=== PATIENT | female | born 1950 | race Caucasian/White ===

== ENCOUNTER 2016-12-18 16:00 | Emergency (ER) | payer MEDICARE, OTHER ==
[~2016-12-18 16:00] MED LIST: AMO500 PO; ASPIR-LOW81 M1 PO; CALCIUM PO; CEPHALEXIN500 MG PO; COZAAR100 MG PO; FOS10 PO; GLU10 PO; GLU500 PO; JANUVIA100 M1 PO; LANTI; NEU300 PO; VIT D3 PO; ZOC20 PO; [UNRECOGNIZED DRUG - OTHER]
[2016-12-18 17:07] LABS: BASOPHIL % 0.8 % (0-2); PLATELET COUNT 235 x10^3mcL (130-400); RED CELL DISTRIBUTION WIDTH 13.2 % (11.5-14.5)
[2016-12-18 17:12] LABS: CALCIUM 8.9 mg/dL (8.5-10.1); CARBON DIOXIDE 28.3 mmol/L (21-32); CHLORIDE SERUM 102 mmol/L (98-107); CREATININE SERUM 0.9 mg/dL (0.6-1.0); GFR1 > 60 mL/min; GLUCOSE SERUM 130 mg/dL (74-106); POTASSIUM SERUM 5.1 mmol/L (3.5-5.1); SODIUM SERUM 139 mmol/L (136-145)
[2016-12-18 17:16] LABS: ALBUMIN 3.5 g/dL (3.4-5.0); ALKALINE PHOSPHATASE 46 U/L (46-116); ALT/SGPT 32 U/L (14-59); AST/SGOT 25 U/L (15-37); BILIRUBIN TOTAL 0.17 mg/dL (0.20-1.00); TOTAL PROTEIN, SERUM 6.7 g/dL (6.4-8.2)
[2016-12-18 18:03] VITALS: BP 159/88
== END 2016-12-18 18:03 | disposition home or self-care (01) ==
LOC: ED 16:00
PROVIDERS: Emergency Medicine
DX: D64.9 Anemia, unspecified (principal); I10 Essential (primary) hypertension; E11.9 Type 2 diabetes mellitus without complications; Z90.49 Acquired absence of other specified parts of digestive tract; Z90.89 Acquired absence of other organs
CPT/HCPCS: 36415

== ENCOUNTER 2017-02-01 11:03 | Emergency (ER) | payer MEDICARE, OTHER ==
[2017-02-01 13:34] LABS: BASOPHIL % 0.5 % (0-2); PLATELET COUNT 275 x10^3mcL (130-400); RED CELL DISTRIBUTION WIDTH 13.2 % (11.5-14.5)
[2017-02-01 13:43] LABS: CALCIUM 9.4 mg/dL (8.5-10.1); CARBON DIOXIDE 28.1 mmol/L (21-32); CREATININE SERUM 1.1 mg/dL (0.6-1.0); POTASSIUM SERUM 4.4 mmol/L (3.5-5.1)
[2017-02-01 13:48] LABS: ALBUMIN 3.9 g/dL (3.4-5.0); BILIRUBIN TOTAL 0.4 mg/dL (0.20-1.00); MAGNESIUM 1.7 mg/dL (1.8-2.4); TOTAL PROTEIN, SERUM 7.8 g/dL (6.4-8.2)
[2017-02-01 13:49] LABS: microscopic required? NO
[2017-02-01 14:00] LABS: UA SPECIFIC GRAVITY <=1.005 (1.005-1.035); urine erythrocyte NEGATIVE (NEGATIVE)
[2017-02-01 16:49] VITALS: BP 160/87
== END 2017-02-01 16:49 | disposition home or self-care (01) ==
LOC: ED 11:03
PROVIDERS: Emergency Medicine
DX: R42 Dizziness and giddiness (principal); R53.1 Weakness; R11.0 Nausea; R63.0 Anorexia; E11.9 Type 2 diabetes mellitus without complications; I10 Essential (primary) hypertension; N28.9 Disorder of kidney and ureter, unspecified; E78.5 Hyperlipidemia, unspecified; M81.0 Age-related osteoporosis without current pathological fracture; Z79.4 Long term (current) use of insulin; Z79.899 Other long term (current) drug therapy; Z88.8 Allergy status to other drugs, medicaments and biological substances
CPT/HCPCS: 82962; J7030

== ENCOUNTER 2017-04-14 21:11 | Emergency (ER) | payer MEDICARE, OTHER ==
[2017-04-15 00:49] VITALS: BP 138/112
== END 2017-04-15 00:49 | disposition home or self-care (01) ==
LOC: ED 21:11
DX: H20.00 Unspecified acute and subacute iridocyclitis (principal); H10.9 Unspecified conjunctivitis; I10 Essential (primary) hypertension; E11.9 Type 2 diabetes mellitus without complications; Z79.84 Long term (current) use of oral hypoglycemic drugs; Z88.8 Allergy status to other drugs, medicaments and biological substances

== ENCOUNTER 2018-08-12 09:56 | Emergency (ER) | payer MEDICARE, OTHER ==
[~2018-08-12] VITALS: Ht 162.6 cm; Wt 71.7 kg
[2018-08-12 11:12] LABS: BASOPHIL % 0.7 % (0-2); PLATELET COUNT 253 x10^3mcL (130-400); RED CELL DISTRIBUTION WIDTH 12.9 % (11.5-14.5)
[2018-08-12 11:16] LABS: CALCIUM 9.2 mg/dL (8.5-10.1); CARBON DIOXIDE 28.3 mmol/L (21-32); CREATININE SERUM 1.1 mg/dL (0.6-1.0); POTASSIUM SERUM 4.8 mmol/L (3.5-5.1)
[2018-08-12 11:20] LABS: ALBUMIN 3.5 g/dL (3.4-5.0); BILIRUBIN TOTAL 0.45 mg/dL (0.20-1.00); TOTAL PROTEIN, SERUM 7.8 g/dL (6.4-8.2)
[2018-08-12 12:14] LABS: UA SPECIFIC GRAVITY 1.015 (1.005-1.035); microscopic required? YES; urine erythrocyte NEGATIVE (NEGATIVE)
[2018-08-12 12:23] LABS: AMPHETAMINE QUAL UR NONE DETECTED (See below)
[2018-08-12 17:15] VITALS: BP 143/72
== END 2018-08-12 17:16 | disposition home or self-care (01) ==
LOC: ED 09:56
PROVIDERS: Emergency Medicine
DX: E11.65 Type 2 diabetes mellitus with hyperglycemia (principal); R11.2 Nausea with vomiting, unspecified; R19.7 Diarrhea, unspecified; E11.22 Type 2 diabetes mellitus with diabetic chronic kidney disease; I12.9 Hypertensive chronic kidney disease with stage 1 through stage 4 chronic kidney disease, or unspecified chronic kidney disease; N18.3 Chronic kidney disease, stage 3 (moderate); E78.00 Pure hypercholesterolemia, unspecified; M81.0 Age-related osteoporosis without current pathological fracture; Z90.49 Acquired absence of other specified parts of digestive tract; Z98.890 Other specified postprocedural states; Z88.8 Allergy status to other drugs, medicaments and biological substances
CPT/HCPCS: 82962; 83880; J1815; J2405; J2765; J3490; J7030

== ENCOUNTER 2019-02-28 14:19 | Emergency (ER) | payer MEDICARE, OTHER ==
[~2019-02-28] VITALS: Ht 160 cm; Wt 59.0 kg
[2019-02-28 14:24] VITALS: Ht 160 cm; Wt 59.0 kg
[2019-02-28 15:29] LABS: BASOPHIL % 0.9 % (0-2); PLATELET COUNT 264 x10^3mcL (130-400); RED CELL DISTRIBUTION WIDTH 13.6 % (11.5-14.5)
[2019-02-28 15:34] LABS: CALCIUM 9.5 mg/dL (8.5-10.1); CARBON DIOXIDE 33.7 mmol/L (21-32); CREATININE SERUM 1.1 mg/dL (0.6-1.0); POTASSIUM SERUM 4.6 mmol/L (3.5-5.1)
[2019-02-28 15:41] LABS: ALBUMIN 3.6 g/dL (3.4-5.0); BILIRUBIN TOTAL 0.33 mg/dL (0.20-1.00); TOTAL PROTEIN, SERUM 7.2 g/dL (6.4-8.2)
[2019-02-28 17:00] LABS: microscopic required? NO
[2019-02-28 17:45] LABS: UA SPECIFIC GRAVITY <=1.005 (1.005-1.035); urine erythrocyte NEGATIVE (NEGATIVE)
[2019-02-28 20:15] VITALS: BP 138/60
== END 2019-02-28 20:15 | disposition home or self-care (01) ==
LOC: ED 14:19
PROVIDERS: Emergency Medicine
DX: R42 Dizziness and giddiness (principal); F41.9 Anxiety disorder, unspecified; R11.2 Nausea with vomiting, unspecified; I10 Essential (primary) hypertension; E11.40 Type 2 diabetes mellitus with diabetic neuropathy, unspecified; M81.0 Age-related osteoporosis without current pathological fracture; Z90.49 Acquired absence of other specified parts of digestive tract; Z98.890 Other specified postprocedural states; Z88.8 Allergy status to other drugs, medicaments and biological substances
CPT/HCPCS: J2405; J7030; Q0092

== ENCOUNTER 2019-05-28 23:20 | Emergency (ER) | payer MEDICARE, OTHER | END 2019-05-29 01:29 | disposition left against medical advice (07) | LOC: ED 23:20 | DX: Z53.21 Procedure and treatment not carried out due to patient leaving prior to being seen by health care provider (principal) ==

== ENCOUNTER 2019-05-29 03:53 | Emergency (ER) | payer MEDICARE, OTHER ==
[~2019-05-29] VITALS: Ht 160 cm; Wt 70.3 kg
[2019-05-29 03:58] VITALS: Ht 160 cm; Wt 70.3 kg
[2019-05-29 04:47] LABS: BASOPHIL % 0.4 % (0-2); PLATELET COUNT 265 x10^3mcL (130-400); RED CELL DISTRIBUTION WIDTH 13.2 % (11.5-14.5)
[2019-05-29 04:55] LABS: CALCIUM 8.9 mg/dL (8.5-10.1); CARBON DIOXIDE 24.6 mmol/L (21-32); CREATININE SERUM 1.1 mg/dL (0.6-1.0); POTASSIUM SERUM 4.1 mmol/L (3.5-5.1)
[2019-05-29 04:59] LABS: ALBUMIN 3.7 g/dL (3.4-5.0); BILIRUBIN TOTAL 0.6 mg/dL (0.20-1.00); TOTAL PROTEIN, SERUM 7.6 g/dL (6.4-8.2)
[2019-05-29 06:19] VITALS: BP 158/68
== END 2019-05-29 06:19 | disposition home or self-care (01) ==
LOC: ED 03:53
PROVIDERS: Emergency Medicine
DX: K52.9 Noninfective gastroenteritis and colitis, unspecified (principal); E11.65 Type 2 diabetes mellitus with hyperglycemia; I10 Essential (primary) hypertension; E11.40 Type 2 diabetes mellitus with diabetic neuropathy, unspecified; Z90.49 Acquired absence of other specified parts of digestive tract; Z98.890 Other specified postprocedural states; Z88.0 Allergy status to penicillin
CPT/HCPCS: J2765; J7030

== ENCOUNTER 2019-05-30 23:44 | Inpatient (IN) | payer MEDICARE, OTHER ==
[~2019-05-30] VITALS: Ht 162.6 cm; Wt 71.3 kg
[2019-05-30 23:53] VITALS: Ht 162.6 cm; Wt 71.3 kg
--- NOTE | 2019-05-31 00:27 | NUR ---
PT BIB DAUGHTER TO ED WITH PT C/O OF ABD PAIN, DIZZINESS, VOMITING. PER DAUGHTER, PT WAS SEEN YESTERDAY AND HAS THE SAME SYMPTOMS BEFORE. PER DAUGHTER, PT ALSO APPEARS TO HAVE "PALE TONGUE" AND BECAME CONCERNED WHEN EMESIS WAS BROWN IN APPEARANCE AND WAS CONCERNED IT WAS BLOOD. PT A&OX4,NO ACUTE DISTRESS NOTED, RESP EVEN ANDU NLABORED, LAYING IN POSITION OF COMFORT. BROWN COLORED EMESIS NOTED ON PT SHIRT AND PT CONTINUES TO SPIT INTO EMESIS BAG. PT DAUGHTER AT BEDSIDE.
[2019-05-31 01:09] LABS: CALCIUM 9.2 mg/dL (8.5-10.1); CARBON DIOXIDE 29.5 mmol/L (21-32); CREATININE SERUM 1.3 mg/dL (0.6-1.0)
[2019-05-31 01:14] LABS: ALBUMIN 3.7 g/dL (3.4-5.0); BASOPHIL % 0.8 % (0-2); BILIRUBIN TOTAL 0.46 mg/dL (0.20-1.00); PLATELET COUNT 295 x10^3mcL (130-400); RED CELL DISTRIBUTION WIDTH 12.8 % (11.5-14.5); TOTAL PROTEIN, SERUM 7.7 g/dL (6.4-8.2)
--- NOTE | 2019-05-31 02:07 | NUR ---
PT RESTING IN BED. PT VITALS ARE STABLE. PT COMPLAINING OF MILD NUASEA BUT DENIES THE NEED FOR MORE MEDICATIONS. PT DENIES ANY PAIN. PT IS A/O X4. RESP ARE E/U. NO ACUTE DISTRESS NOTED.
[2019-05-31] MEDS ORDERED: MASON NATURAL1000 IU PO (02:10)
[2019-05-31] MEDS ORDERED: LACTULOSE10 GM/152 PO (02:11)
[2019-05-31] MEDS ORDERED: MIRALAX17 GM/Dose PO (02:11)
[2019-05-31 03:10] LABS: UA SPECIFIC GRAVITY 1.025 (1.005-1.035); microscopic required? YES; urine erythrocyte TRACE (NEGATIVE)
--- NOTE | 2019-05-31 04:55 | NUR ---
REPORT GIVEN TO JENNIFER ANDREWS TO ASSUME CARE OF PT.
--- NOTE | 2019-05-31 06:00 | NUR ---
RECEIVED PT FROM ED VIA [facility], ACCOMPANIED BY RN. PT AA&O X4. NO SOB ON ROOM AIR. BREATHING EVEN AND UNLABORED. NO C/O DIZZINESS/N/V AT THIS TIME. PT STATES RECEIVED MEDICATION IN ED. AMBULATES WITH ASSIST. USES WALKER AT HOME. SAFETY MEASURES IN PLACE. DEMONSTRATED HOW TO CALL FOR ASSISTANCE. CALL LIGHT WITHIN REACH. WILL ENDORSE CONTINUITY OF CARE TO ONCOMING RN.
[2019-05-31 06:26] VITALS: BP 115/66
--- NOTE | 2019-05-31 08:00 | NUR ---
RECEIVED PATIENT ALERT AND ORIENTED AND RESTING QUIETLY AT THIS TIME SHE IS NPO DUE TO NAUSEA AND VOMITING AND POOR INTAKE OF DIET. NTOE DTHE AIC AT 9.1 AND PATIEN TAHS SOME BACTERIA IN THE URINE. SHE HAS BEEN AMBULATORY BUT HAS BEEN SHAKEY AND RECEIVED ATIVERT IN THE ER PRIOR TO ARRIVING TO THE FLOOR. SHE DID NOT REQUIRE3 FURTHER MEDICATION AND REFUSED PAIN MEDICATION PER THE DATA COMMUNICATIONS ANALYST. VITALS AT THIS TIME ARE AT 98.2, 97, 18, 161/78, 98%. PATIENT LAST BM WAS ON THE . SHE HAS HYPOACTIVE BOWEL SOUNDS AT THIS TIME. LUNGS ARE DIMINISHE DBUT CLEAR AND PULSES PALPABLE TO ALL EXTREMITIES. SHE DENIE BURING ON URINATION AND FAMILY STATES SHE HAS A HISTORY OF [id number]. WILL CONTINUE TO MONITOR INDICATED.
[2019-05-31 09:01] VITALS: BP 161/78
--- NOTE | 2019-05-31 10:16 | NUR ---
DR MANZO IN TO SEE AND DISCUSSED POSSIBLE UPPER GI. PATIENT IS SHAKEY AND WITH HICUPS. SHE DENIES PAIN BUT HAS BEEN WITH NAUSEA AND ON AND OFF VOMITING FOR SEVERAL WEEKS PER THE FAMILY. HER AIC IS HIGH AND SHE HAS HAD BLOOD SUGARS OF 300 PLUS WHEN ADMITTED TO THE ER. SHE HAS HAD A MRI ON THE OUTSIDE WITH A NEUROLOGIST IN [place] BUT THE RESULTS WITHOUT CONTRAST WERE INCONCLUSIVE AND ANOTHER IS PENDING INSURANCE APPROVAL. ADVISED DR MANZO AND HE HAS SO FAR NTO ORDERED UPPER GI ASS THE LASBS ARE GOOD AT THIS TIME WITH AN H AND H OS 14.1 AND HAS BEEN WITH NO ACTIVE BLEEDING. THERE IS SOME BACTERIA AND KETONES IN THE URINE NOTED. PATIENT IS RESTING AND GAVE HER MEDICATIONS FOR BP AND GERD INDICATED. SHE REFUSED ZOFRAN OR PAIN MEDICATION AT THIS TIME. LUNGS ARE DIMINISHED AND SOME TRACE EDEMA NOTED TO THE LOWER EXTREMITIES. NOTE DTHE AIC AT 9.1 AND HAS BEEN WITH HX OF HTN, DM, BILATERA ANKLE FRACTURES, C SECTIONS. DEMETRIO THAS A WALKER AT HOME AND HAS BEEN ON NORMAL SALINE AT 75 CC PER HOUR. PATIENT HAS AN ALLERGY TO IODINE NOTED. WILL CONTINUE TO MONITOR INDICATED.
[2019-05-31 13:24] VITALS: BP 182/84
--- NOTE | 2019-05-31 14:34 | NUR ---
PATIENT HAS ELEVATED BP AND HAD JUST RETURNED FROM [facility]. CHECKED AGAIN BUT REMAINS ELEVATED. HAD CALLED THE RESIDENT FOR ADJUSTMENT TO THE PRESENT ORDERS OF INSULIN NPH AND LANTUS AND THE REGLAN ORDER TO CLARIFY. AWAITING HTE RESULTS OF THE KUB ORDERED. DENIES PAIN, NAUSEA OR DIZZINESS AT THIS TIME.
[2019-05-31 16:31] VITALS: BP 142/74
--- NOTE | 2019-05-31 17:49 | NUR ---
BLOOD SUGAR AT THIS TIME AT 153 ADN THE BP AT 145/81. MUCH IMPROVED SINCE PRIOR THE NPH AND THE HYDRALIZINE. PATIENT IS ON CLEAR LIQUID DIET AND HAS BEEN WITH MINIMAL NAUSEA AT THIS TIME. ADVISED THAT AFTER MIDNIGHT NO FOOD POSSIBLE EGD PLANNED. DR MANZO WAS NOT SURE IF SHE NEEDED A EXAM OR NOT. ADVISED THE PATEINT OF PLAN OF CARE. =
--- NOTE | 2019-05-31 19:20 | NUR ---
OFFERED NUMBER FOR THE PATIENTS NEUROGLIST TO THE RESIDENT. PLACED IN THE CHART FOR REFERENCE INDICATED. PATIENT HAS HAS A MRI AND NEEDS A MRO WITH SOME KIND OF CONTRAST THAT SHE IS NOT ALLERGIC TOO FOR BETTER VISUALIZATION. CONTRAST FOR BETTER VISUALIZATION. PATIENT IS RESTING QUIELTY AT THIS TIME WILL ENDORSE TO THE NEXT SHIFT INDICATED.
--- NOTE | 2019-05-31 19:30 | NUR ---
RECEIVED REPORT FROM DAY SHIFT RN. PT RESTING IN BED COMFORTABLY. AA&O X4. BREATHING EVEN AND UNLABORED ON ROOM AIR. NO C/O N/V/ABD PAIN AT THIS TIME. NO DISTRESS NOTED. IV TO RAC, 1/2 NS INFUSING. SAFETY MEASURES IN PLACE. BED IN LOWEST POSITION. SIDE RAIL SUP X2. INSTRUCTED PT TO USE THE CALL LIGHT FOR ASSISTANCE. CALL LIGHT WITHIN REACH. DAUGHTER AT BEDSIDE.
--- NOTE | 2019-05-31 21:12 | NUR ---
PT C/O NAUSEA. ZOFRAN GIVEN.
[2019-05-31 22:09] VITALS: BP 150/57
--- NOTE | 2019-06-01 02:29 | NUR ---
PT RESTING IN BED WITH EYES CLOSED. NO FACIAL GRIMACING. NO DISTRESS NOTED. CALL LIGHT WITHIN REACH. NIECE AT BEDSIDE.
[2019-06-01 05:51] VITALS: BP 178/77
--- NOTE | 2019-06-01 06:50 | NUR ---
PT RESTED IN LONG INTERVALS DURING SHIFT. NO SOB NOTED. NO C/O PAIN. NO C/O N/V/DIZZINESS AT THIS TIME. SAFETY MEASURES MAINTAINED. ALL NEEDS ATTENDED TO. CALL LIGHT WITHIN REACH. NIECE AT BEDSIDE. WILL ENDORSE CONTINUITY OF CARE TO DAY SHIFT RN.
[2019-06-01 06:56] LABS: BASOPHIL % 0.7 % (0-2); PLATELET COUNT 227 x10^3mcL (130-400); RED CELL DISTRIBUTION WIDTH 13.2 % (11.5-14.5)
[2019-06-01 07:28] LABS: CALCIUM 8.6 mg/dL (8.5-10.1); CARBON DIOXIDE 26.1 mmol/L (21-32); MAGNESIUM 1.6 mg/dL (1.8-2.4); PHOSPHOROUS 3.3 mg/dL (2.5-4.9); POTASSIUM SERUM 3.3 mmol/L (3.5-5.1)
--- NOTE | 2019-06-01 07:31 | NUR ---
RECEIVED HAND OFF REPORT FROM NIGHT NURSE. PATIENT IS AWAKE AND ALERT X4, LAYING IN BED ON ROOM AIR WITH COMPLAINT OF MILD NAUSEA. FAMILY MEMBER IN ROOM FOR LUX[place]BOURGISH TRANSLATION. INFORMED PATIENT AND FAMILY OF NEED FOR NPO STATUS UNTIL FURTHER CLARIFICATION BY DR MANZO FOR POSIBLE EGD. VERBAL REPORT STATED THAT DR MANZO SAID HE MIGHT WANT TO PERFORM EGD AND TO KEEP PATIENT NPO, WILL FOLLOW UP WITH RESIDENT. WALKER IN ROOM, PATIENT AMBULATORY AT BASELINE ORIENTED TO CALL LIGHT AND PLACED WITHIN REACH
[2019-06-01 08:46] VITALS: BP 174/77
--- NOTE | 2019-06-01 08:46 | NUR ---
PATIENT COMPLAINING OF NAUSEA AT THIS TIME. ADMINSTERED ZOFRAN PER AUG. WILL CONITUE TO MONITOR
--- NOTE | 2019-06-01 09:15 | NUR ---
P.T. NOTES UNABLE TO SEE PATIENT AT THIS TIME DUE TO FEELING NAUSEAS, PER FAMILY PATIENT WOULD LIKE TO GET SOME REST.
[2019-06-01 12:45] VITALS: BP 176/78
--- NOTE | 2019-06-01 12:57 | NUR ---
PATIENT COMPLAINING OF NAUSEA. MEDICATED PER MAR. UPDATED FAMILY MEMBER WILL CONTINUE TO MONITOR
--- NOTE | 2019-06-01 14:00 | NUR ---
DR MANZO ROUNDED ON PATIENT AND ADVISED PATIENT ON EGD. PATIENT CONSENTED TO PRODECURE. INFOMRED CONSENT OBTAINED, CHECKLIST FINISHED. REPORTED CALLED TO GI LAB. PATIENT TAKEN DOWN FOR EGD AT 1415.
--- NOTE | 2019-06-01 14:40 | NUR ---
PHYSICAL THERAPY DAILY NOTES CO-SIGN All documentation done by the Casing Wringer Operator for 06/01/19 has been reviewed. I agree with the documentation. Reviewed/Co-Signed by: Ritu Guzman PT Documentation Done by:KATHLEEN HERNANDEZ PTA
--- NOTE | 2019-06-01 15:56 | NUR ---
OUTPATIENT NURSE SHAHID REPORTED STABLE VITAL SIGNS POST EGD. DIAGNOSIS OF GASTRITIS AND GERD. RECEIVED FROM OUTPATIENT, TRANSPORTED VIA [facility]. AWAKE AND ALERT, ORIENTED TO NAME, PLACE, TIME AND SITUATION. BREATHING EVEN AND UNLABORED ON ROOM AIR. VITAL SIGNS BP 122/67, WA 84, RR 16/MIN, O2 SAT 94% ON RA, T 98.0F. FEMALE FAMILY MEMBER IN ROOM.
[2019-06-01 15:57] VITALS: BP 122/67
[2019-06-01 16:17] LABS: FREE T4 1.59 ng/dL (0.76-1.46)
[2019-06-01 16:31] VITALS: BP 122/64
--- NOTE | 2019-06-01 17:30 | NUR ---
FULL LIQUID TRAY AT BEDSIDE. ENCOURAGED PATIENT TO EAT MEAL. ADMINISTERED MEDICATIONS PER MAR. NO COMPLAINTS OF PAIN AT THIS TIME. DAUGHTER AT BEDSIDE
--- NOTE | 2019-06-01 19:10 | NUR ---
RECEIVED PT IN BED RESTING WITH FAMILY AT BEDSIDE. NO SOB NOTED.LUNG SOUND CTA. C/O SLIGHT NAUSEA. WILL MEDICATE ORDERED. IV SITE PATENT AND INTACT. BOWEL SOUND ACTIVE. PT ABLE TO FOLLOW COMMANDS. DENIES PAIN AT THIS TIME. BED IN LOWEST POSITION,CALL LIGHT WITHIN REACH. WILL CONTINUE TO MONITOR.
--- NOTE | 2019-06-01 19:32 | NUR ---
GAVE REPORT TO NIGHT NURSE. PATIENT TOLLERATED MEAL FOR A TIME. EPISODE OF SLIGHT NAUSEA. NO VOMITING. PATIETN AWARE OF EGD FINDINGS. ENDORSED CARE
[2019-06-01 21:04] VITALS: BP 123/65
--- NOTE | 2019-06-01 21:35 | NUR ---
RECEIVED REPORT FROM COLEEN ANDREWS FOR CONTINUITY OF CARE. PT IS AAOX4 AND SITTING IN THE CHAIR AT BEDSIDE. FAMILY AT BEDSIDE. PT C/O NAUSEA. WILL ADMINISTER ZOFRAN PER MAR ALONG WITH SCHEDULED MEDS. ROUTINE MEDS TOLERATED WELL. CALL LIGHT WITHIN REACH. WILL CONTINUE TO MONITOR.
--- NOTE | 2019-06-01 23:55 | NUR ---
PT ASKED FOR BS TO BE CHECKED. RBS WAS 260. NO ACUTE DISTRESS NOTED. PT WAS COLD. PROVIDED PT WITH WARM BLANKET. WILL CONTINUE TO MONITOR.
--- NOTE | 2019-06-02 02:51 | NUR ---
PT SLEEPING. PT BREATHING EVEN AND UNLABORED. NO ACUTE DISTRESS NOTED. IVF INFUSING WELL. IV INTACT. FAMILY AT BEDSIDE. CALL LIGHT WITHIN REACH. BED IN LOWEST POSITION. SIDE RAILS X2 UP. WILL CONTINUE TO MONITOR.
--- NOTE | 2019-06-02 03:45 | NUR ---
PT SLEEPING. PT BREATHING EVEN AND UNLABORED. NO ACUTE DISTRESS NOTED. IVF INFUSING WELL. FAMILY AT BEDSIDE. CALL LIGHT WITHIN REACH. BED IN LOWEST POSITION. SIDE RAILS X2 UP. WILL CONTINUE TO MONITOR.
--- NOTE | 2019-06-02 05:15 | NUR ---
PT SLEPT THROUGHOUT THE NIGHT. NO ACUTE DISTRESS NOTED. PT COMPLIED WITH NURSING CARE THROUGHOUT THE SHIFT. COMFORT AND SAFETY MEASURES MAINTAINED. ALL QUESTIONS AND CONCERNS ADDRESSED. WILL ENDORSE CARE TO DAY SHIFT NURSE. WILL CONTINUE TO MONITOR. FAMILY AT BEDSIDE.
[2019-06-02 05:43] VITALS: BP 153/83
[2019-06-02 06:05] LABS: BASOPHIL % 0.4 % (0-2); PLATELET COUNT 248 x10^3mcL (130-400); RED CELL DISTRIBUTION WIDTH 13.4 % (11.5-14.5)
[2019-06-02 07:00] LABS: CALCIUM 8.7 mg/dL (8.5-10.1); CARBON DIOXIDE 29.5 mmol/L (21-32); CREATININE SERUM 1.4 mg/dL (0.6-1.0); MAGNESIUM 2.3 mg/dL (1.8-2.4); PHOSPHOROUS 4.4 mg/dL (2.5-4.9); POTASSIUM SERUM 3.7 mmol/L (3.5-5.1)
[2019-06-02 08:13] VITALS: BP 121/70
--- NOTE | 2019-06-02 08:19 | NUR ---
RECEIVED REPORT FROM TELE RN NURSE, AOX4, MEDSURG, REGULAR RATE AND RHYTHM, CTA ON BLF, PALPABLE PULSES , NO EDEMA, +BS, LAST BM 05/31, VOID WITH NO DYSURIA, GENERALIZED WEAKNESS, LIMITED ROM FROM PAIN, SKIN DRY AND INTACT, IV INTACT AND PATENT, 0.45NS INFUSING AT RAC AT 20CC/HR. CALL LIGHT WITHIN REACH. BED AT LOWEST POSITION.
--- NOTE | 2019-06-02 08:48 | NUR ---
SEEN SITTING, AOX4, FEEDING SELF , NO SUBJECTIVE COMPLAINTS, PO MEDICATIONS TAKEN, PROTONIX IVP GIVEN. CALL LIGHT WITHIN REACH. BED AT LOWEST POSITION.
--- NOTE | 2019-06-02 10:22 | NUR ---
SEEN PATIENT SITTING WITH PT SANDRA. WALKING EXERCISE NOT DONE DUE TO PATIENT COMPLAINING OF WEAKNESS FROM DIARRHEA. PATIENT ADVISED TO DO EXERCISES WHILE SITTING. BP WAS 90/48 PRIOR TO EXERCISE. POST EXERCISE, BP 109/54. ADVISED TO TAKE IN FLUIDS. DR. MANZO MADE AWARE . CALL LIGHT WITHIN REACH. BED AT LOWEST POSITION.
--- NOTE | 2019-06-02 11:40 | NUR ---
SEEN PATIENT AOX4, NOT IN DISTRESS, NO DYSPNEA WITH COMPLAINTS OF BODY MALAISE. ADVISED TO DO STRETCHING AND MOBILIZE EXTREMITIES. CALL LIGHT WITHIN REACH. BED AT LOWEST POSITION.
[2019-06-02 12:36] VITALS: BP 153/71
--- NOTE | 2019-06-02 14:51 | NUR ---
SEEN AOX4, NOT IN DISTRESS, PATIENT VERBALIZED THAT SHE HAS BEEN DEFECATING WATERY STOOLS. EXPLAINED TO PATIENT THAT SHE WILL BE TAKING SUPREP BOWEL PREP FOR COLONOSCOPY AND THAT HER BOWELS NEEDED TO BE CLEAR PRIOR TO COLONOSCOPY. PATIENT VERBALIZED UNDERSTANDING
--- NOTE | 2019-06-02 16:20 | NUR ---
SEEN AOX4, NO SUBJECTIVE COMPLAINTS. ACCUCHECK DONE CBG 310. REG 12 U SQ GIVEN. CALL LIGHT WITHIN REACH. BED AT LOWEST POSITION.
[2019-06-02 16:21] VITALS: BP 111/68
--- NOTE | 2019-06-02 17:03 | NUR ---
PHYSICAL THERAPY DAILY NOTES CO-SIGN All documentation done by the Materials Director for 06/02/19 has been reviewed. I agree with the documentation. Reviewed/Co-Signed by: Jet Pantoja PT Documentation Done by:SANDRA CULLEN FOOT SETTER PROGRESS TONIA; 06/02/19 POC [id number]
[2019-06-02 19:39] VITALS: BP 119/70
--- NOTE | 2019-06-02 19:40 | NUR ---
RECEIVED REPORT FROM AM NURSE, PT SITTING IN CHAIR WITH DAUGHTER AT BEDSIDE. PT AAOX4, ABLE TO FOLLOW COMMANDS AND MAKE NEEDS KNOWN. MED-SURG, DENIES CP/PRESSURE AT THIS TIME. PALPABLE PULSES TO ALL EXTREMETIES. NO EDEMA NOTED. LUNG SOUNDS CTA, BREATHING EVEN AND UNLABORED ON RA. NO ACUTE DISTRESS NOTED. ABD SOFT AND ROUND. ACTIVE BS X4 QUAD. DENIES N/V AT THIS TIME. PT ON BOWEL PREP AT THIS TIME. PT STATES PASSING YELLOWISH LOOSE STOOLS. VOIDS FREELY, BRP. AMBULATORY WITH WALKER AT BASELINE. IV TO RAC PATENT AND INTACT. SITE FREE FROM REDNESS AND SWELLING. BED AT LOWEST SETTING. SIDE RAILS X2 UP. CALL LIGHT WITHING REACH. WILL CONT TO MONITOR.
--- NOTE | 2019-06-02 20:00 | NUR ---
SECOND BOTTLE OF BOWEL PREP GIVEN AT THIS TIME. PT STATES STOOL STILL YELLO IN COLOR. NO ACUTE DISTRESS NOTED. WILL CONT TO MONITOR.
--- NOTE | 2019-06-02 23:02 | NUR ---
PT C/O NAUSEA, HAD AN EPISODE OF YELLOW EMESIS 100CC. MEDICATED WITH PRN ZOFRAN PER AUG. NO ACUTE DISTRESS NOTED. WILL CONT TO MONITOR.
--- NOTE | 2019-06-03 00:20 | NUR ---
FOUND PT SITTING ON COMMODE, PT LETHARGIC STATES FEELING VERY WEAK. BS CHECKED, BS 239. VS 159/57, HR 82, 97% ON RA. CONT TO HAVE NAUSEA AND VOMITTING. ASSISTED TO BED AND ENCOURAGE TO USE BEDPAN FOR SAFETY. PT ALSO C/O OF ANXIETY. CALLED DR DUONG AND INFORMED ABOUT PT STATUS. PER , HE WILL COME AND SEE PT LATER.
--- NOTE | 2019-06-03 01:10 | NUR ---
PT C/O ANXIETY, MEDICATED WITH PRN ATIVAN PER MAR. NO ACUTE DISTRESS NOTE. WILL CONT TO MONITOR
--- NOTE | 2019-06-03 01:30 | NUR ---
PT MORE CALM, STATES FEELING MUCH BETTER AND WILL TRY TO SLEEP. NO ACUTE DISTRESS NOTED. BED AT LOWEST SETTING. SIDE RAILS X2 UP. WILL CONT TO MONITOR.
[2019-06-03 04:41] VITALS: BP 150/82
[2019-06-03 06:33] LABS: CALCIUM 8.5 mg/dL (8.5-10.1); CARBON DIOXIDE 28.6 mmol/L (21-32); CREATININE SERUM 1.2 mg/dL (0.6-1.0)
--- NOTE | 2019-06-03 06:33 | NUR ---
PT SLEPT AT INTERVALS THROUGHOUT THE NIGHT, BREATHING EVEN AND UNLABORED ON RA. PT HAVING CLEAR YELLOW WATERY STOOLS. PT KEPT NPO SINCE MIDNIGHT. TOLERATING WELL. PREO WIPES PROVIDED. MARIUM CARE RENDERED. PT TOLERATED WELL. PT DENIES N/V AT THIS TIME. NO ACUTE DISTRESS NOTED. ALL NEEDS ASSESSED AND ATTENDED TO. BED AT LOWEST SETTING. SIDE RAILS X2 UP. CALL LIGHT WIHTING REACH. WILL CONT TO MONITOR.
[2019-06-03 06:34] LABS: POTASSIUM SERUM 2.9 mmol/L (3.5-5.1)
[2019-06-03 06:35] LABS: BASOPHIL % 0.3 % (0-2); PLATELET COUNT 234 x10^3mcL (130-400); RED CELL DISTRIBUTION WIDTH 13.1 % (11.5-14.5)
--- NOTE | 2019-06-03 06:46 | NUR ---
K 2.[address] DUONG. NO NEW ORDER RECEIVED. WILL ENDORSE CARE TO AM NURSE.
--- NOTE | 2019-06-03 07:15 | NUR ---
SEEN AOX4, NOT IN DISTRESS, AOX4, MEDSURG, PALPABLE PULSES, NO EDEMA, CTA ON BLF, + BS, LAST BM 06/03/19, NO N/V, NO ABD PAIN, VOID WITH NO DYSURIA, GENERALIZED WEAKNESS, SKIN DRY AND INTACT, IV INFUSING WELL WITH 0.45% NS AT 20 CC/HR AT RAC.NO REDNESS OR INFILTRATION. CALL LIGHT WITHIN REACH. BED AT LOWEST POSITION
[2019-06-03 08:15] VITALS: BP 196/86
--- NOTE | 2019-06-03 08:30 | NUR ---
PATIENT SEEN BY LEAD ENGINEER MATTEO. PATIENT COMPLAINED OF NAUSEA. PATIENT ALSO IS ANXIOUS FROM SURGERY. SBP 196. PO MEDICATIONS GIVEN. CALL LIGHT WITHIN REACH. BED AT LOWEST POSITION.
--- NOTE | 2019-06-03 08:36 | NUR ---
RECEIVED CALL AND GAVE REPORT TO DARRYL RICHEY FROM GI LAB. PATIENT UNABLE TO TAKE SENOKOT AND VIT D DUE TO PIXES MACHINE OUT OF ORDER.
--- NOTE | 2019-06-03 10:25 | NUR ---
POTASSIUM 2.9, K+LIDOCAINE+NS IVPB GIVEN AT 68CC/HR. PATIENT TRANSPORTED TO GI LAB FOR COLONOSCOPY.
[2019-06-03] MEDS ORDERED: LIPI10 PO (12:02)
[2019-06-03] MEDS ORDERED: MIRALAX17 GM/Dose PO (12:02)
[2019-06-03] MEDS ORDERED: AMITIZA24 MC1 PO (12:02)
[2019-06-03 12:24] VITALS: BP 148/70
[2019-06-03 12:37] VITALS: BP 109/52
[2019-06-03 12:41] VITALS: BP 150/70
--- NOTE | 2019-06-03 15:59 | NUR ---
SEEN PATIENT AOX4, NOT IN DISTRESS, IV DISCONTINUED AND REMOVED . CATHETER PATENT, NO SUBJECTIVE COMPLAINTS. PATIENT DISCHARGED PER WHEELCHAIR, ACCOMPANIED BY JUVENILE PROBATION OFFICER SARAH AND DAUGHTER .
== END 2019-06-03 16:00 | disposition home health service (06) | DRG 637 ==
LOC: ED 23:44 → DU 05-31 04:27 → MU 05-31 04:27 → DU 05-31 05:06 → MU 05-31 18:22
PROVIDERS: Emergency Medicine; Internal Medicine Gastroenterology; ADMIT Internal Medicine
PROC: 0DB68ZX Excision of Stomach, Via Natural or Artificial Opening Endoscopic, Diagnostic (ICD-10-PCS; principal; 2019-06-01 14:15)
PROC: 0DBP8ZX Excision of Rectum, Via Natural or Artificial Opening Endoscopic, Diagnostic (ICD-10-PCS; 2019-06-03)
PROC: 0DBN8ZZ Excision of Sigmoid Colon, Via Natural or Artificial Opening Endoscopic (ICD-10-PCS; 2019-06-03 10:15)
DX: E11.65 Type 2 diabetes mellitus with hyperglycemia (principal); N17.0 Acute kidney failure with tubular necrosis; E87.1 Hypo-osmolality and hyponatremia; K29.00 Acute gastritis without bleeding; E86.0 Dehydration; K21.9 Gastro-esophageal reflux disease without esophagitis; K20.9 Esophagitis, unspecified; K63.5 Polyp of colon; I10 Essential (primary) hypertension; M81.0 Age-related osteoporosis without current pathological fracture; Z99.3 Dependence on wheelchair; Z68.27 Body mass index [BMI] 27.0-27.9, adult; Z79.84 Long term (current) use of oral hypoglycemic drugs
CPT/HCPCS: 43235; 45378; 82962; 84439; 97110-GP; C9113; G0378; J1200; J1610; J1815; J1940; J2060; J2250; J2310; J2405; J2765; J3010; J3480; J3490; J7030; J8597; Q0092

== ENCOUNTER 2019-12-01 04:24 | Emergency (ER) | payer MEDICARE, OTHER ==
[~2019-12-01] VITALS: Ht 167.6 cm; Wt 74.8 kg
[~2019-12-01 04:24] MED LIST changes: +AMITIZA24 MC1 PO; +LACTULOSE10 GM/152 PO; +LIPI10 PO; +MASON NATURAL1000 IU PO; +MIRALAX17 GM/Dose PO
[2019-12-01 04:32] VITALS: Ht 167.6 cm; Wt 74.8 kg
[2019-12-01 05:12] LABS: BASOPHIL % 0.5 % (0-2); PLATELET COUNT 380 x10^3mcL (130-400); RED CELL DISTRIBUTION WIDTH 12.8 % (11.5-14.5)
[2019-12-01 05:44] LABS: CALCIUM 9.2 mg/dL (8.5-10.1); CARBON DIOXIDE 22.9 mmol/L (21-32); CREATININE SERUM 1.8 mg/dL (0.6-1.0); POTASSIUM SERUM 5.1 mmol/L (3.5-5.1)
[2019-12-01 05:48] LABS: BILIRUBIN TOTAL 0.41 mg/dL (0.20-1.00); TOTAL PROTEIN, SERUM 7.6 g/dL (6.4-8.2)
[2019-12-01 05:49] LABS: ALBUMIN 3.3 g/dL (3.4-5.0)
[2019-12-01 07:28] VITALS: BP 127/43
[2019-12-01] MEDS ORDERED: FORTAMET1000 MG (20:37)
[2019-12-04] MEDS ORDERED: NORCO1 TA2 PO (09:14)
[2019-12-04] MEDS ORDERED: COLACE100 MG PO (09:14)
== END 2019-12-01 07:28 | disposition home or self-care (01) ==
LOC: ED 04:24
PROVIDERS: Emergency Medicine
DX: R10.84 Generalized abdominal pain (principal); R11.2 Nausea with vomiting, unspecified; I10 Essential (primary) hypertension; E11.9 Type 2 diabetes mellitus without complications; Z90.49 Acquired absence of other specified parts of digestive tract; Z88.5 Allergy status to narcotic agent
CPT/HCPCS: J2765; Q0092